=== PATIENT | female | born 1965 | race Caucasian/White ===

== ENCOUNTER → 2016-08-21 | Outpatient (CLI) | payer BC | LOC: MAMO 07-26 15:00 | DX: Z12.31 Encounter for screening mammogram for malignant neoplasm of breast (principal); N64.89 Other specified disorders of breast | CPT/HCPCS: G0202 ==

== ENCOUNTER → 2016-09-04 | Outpatient (CLI) | payer BC | LOC: MAMO 08:00 | DX: R92.8 Other abnormal and inconclusive findings on diagnostic imaging of breast (principal) | CPT/HCPCS: 76642-LT; G0204 ==

== ENCOUNTER → 2020-04-27 | Outpatient (CLI) | payer OTHER ==
[~2020-04-27] MED LIST: PROTONIX40 MG PO; ZESTRIL10 MG PO
== END ==
LOC: HEART 5 14:12
DX: R00.2 Palpitations (principal)

== ENCOUNTER → 2020-05-09 | Outpatient (CLI) | payer OTHER | LOC: HEART 5 08:36 | DX: R00.2 Palpitations (principal); R93.1 Abnormal findings on diagnostic imaging of heart and coronary circulation | CPT/HCPCS: 93306 ==

== ENCOUNTER → 2020-06-16 | Outpatient (CLI) | payer OTHER | LOC: EXRD 09:00 | DX: M54.2 Cervicalgia (principal); M54.6 Pain in thoracic spine; G89.29 Other chronic pain; M54.5 Low back pain; M47.812 Spondylosis without myelopathy or radiculopathy, cervical region; M47.816 Spondylosis without myelopathy or radiculopathy, lumbar region; M47.814 Spondylosis without myelopathy or radiculopathy, thoracic region | CPT/HCPCS: 72050; 72070; 72100 ==

== ENCOUNTER → 2020-12-06 | Outpatient (CLI) | payer OTHER | LOC: EXRD 08:00 | DX: M79.605 Pain in left leg (principal); R20.2 Paresthesia of skin | CPT/HCPCS: 93971 ==

== ENCOUNTER → 2020-12-19 | Outpatient (CLI) | payer OTHER | LOC: KOH-I 11:30 | DX: Z12.2 Encounter for screening for malignant neoplasm of respiratory organs (principal); Z87.891 Personal history of nicotine dependence; R91.8 Other nonspecific abnormal finding of lung field | CPT/HCPCS: 71271 ==

== ENCOUNTER → 2021-03-02 | Outpatient (CLI) | payer OTHER | LOC: HEART 5 11:49 | DX: J44.9 Chronic obstructive pulmonary disease, unspecified (principal); R92.8 Other abnormal and inconclusive findings on diagnostic imaging of breast; K21.9 Gastro-esophageal reflux disease without esophagitis | CPT/HCPCS: 94060 ==

== ENCOUNTER → 2021-07-13 | Outpatient (CLI) | payer OTHER | LOC: KOH-I 06-18 14:00 | DX: R91.8 Other nonspecific abnormal finding of lung field (principal); K76.0 Fatty (change of) liver, not elsewhere classified | CPT/HCPCS: 71250 ==